=== PATIENT | male | born 1995 | race Hispanic/Latino ===

== ENCOUNTER → 2023-12-09 | Outpatient (CLI) | payer OTHER ==
[~2023-12-09] MED LIST: GASTROGRAFIN SOLUTION 30ML ONE; ISOVUE-370 76% 100ML VIAL ONE
== END ==
LOC: M PLAIMG 08:16
PROVIDERS: ATTEND Internal Medicine Medical Oncology
DX: C62.90 Malignant neoplasm of unspecified testis, unspecified whether descended or undescended (principal)
CPT/HCPCS: 71046; 74177; Q9963; Q9967

== ENCOUNTER → 2024-04-10 | Outpatient (CLI) | payer OTHER ==
[~2024-04-10] MED LIST changes: +GASTROGRAFIN SOLUTION 30ML As Ordered ONE; -GASTROGRAFIN SOLUTION 30ML ONE; +ISOVUE-370 76% 100ML VIAL As Ordered ONE; -ISOVUE-370 76% 100ML VIAL ONE
== END ==
LOC: M RAD 08:17
PROVIDERS: ATTEND Dietitian, Registered
DX: Z85.47 Personal history of malignant neoplasm of testis (principal)
CPT/HCPCS: 74177; Q9963; Q9967

== ENCOUNTER → 2025-04-15 | Outpatient (REF) | payer OTHER ==
[2025-04-15 11:45] LABS: SEMEN APPEARANCE OPAQUE (OPAQUE)
[2025-04-15 11:46] LABS: SEMEN VISCOSITY LIQUID (LIQUID); SEMEN VOLUME 3.1 ml (2.0-5.0); SPERM CONCENTRATION 14.8 M/ml (>=15.0); TOTAL PROGRESSIVE SPERM 15.7 M/Ejac.; WBC CONCENTRATION >1 M/ml (<=1 M/ml)
== END ==
LOC: M LAB REF 11:41
PROVIDERS: ATTEND Obstetrics & Gynecology
DX: N46.8 Other male infertility (principal)

== ENCOUNTER → 2025-06-24 | Outpatient (CLI) | payer OTHER ==
[~2025-06-24] MED LIST changes: -GASTROGRAFIN SOLUTION 30ML As Ordered ONE; +ISOVUE-370 76% 100 ML VIAL As Ordered ONE; -ISOVUE-370 76% 100ML VIAL As Ordered ONE
== END ==
LOC: M RAD 15:42
PROVIDERS: ATTEND Internal Medicine Medical Oncology
DX: C62.90 Malignant neoplasm of unspecified testis, unspecified whether descended or undescended (principal)
CPT/HCPCS: 71046; 74177; Q9967